=== PATIENT | male | born 1975 | race Caucasian/White ===

== ENCOUNTER 2024-04-29 12:14 | Emergency (ER) | payer BC ==
[~2024-04-29] VITALS: Ht 182.9 cm; Wt 113.9 kg
[2024-04-29 12:59] LABS: BASOPHILS 0.7 % (0-2); HEMATOCRIT 47.2 % (35.0-50.0); HEMOGLOBIN 16.5 g/dL (12.0-18.0); LYMPHOCYTES 22.8 % (24-44); MCV 91.3 fl (81-99); MONOCYTES 4.5 % (0-12); PLATELET COUNT 180 K/uL (140-440); RBC 5.16 M/ul (4.3-5.7)
[2024-04-29 13:19] LABS: ALBUMIN 3.8 g/dL (3.4-5.0); ALBUMIN/GLOBULIN RATIO 1.12 (1.1-2.4); ALKALINE PHOSPHATASE 40 U/L (46-116); ALT (SGPT) 47 U/L (14-59); ANION GAP 10.8 (7-21); AST (SGOT) 23 U/L (15-37); BILIRUBIN, TOTAL 0.8 ng/dL (0.2-1.0); BUN/CREATININE RATIO 7.04 (6.0-28.6); CALCIUM 8.9 mg/dL (8.5-10.1); CARBON DIOXIDE 28 mmol/L (21-32); CHLORIDE 103 mmol/L (98-107); CREATININE, SERUM 1.42 mg/dL (0.70-1.30); GLOMERULAR FILTRATION RATE,EST 61 mL/min (>60); MAGNESIUM 2.2 mg/dL (1.8-2.4); POTASSIUM 3.8 mmol/L (3.5-5.1); PROTEIN, TOTAL 7.2 g/dL (6.4-8.2); UREA NITROGEN 10 mg/dL (7-18)
[2024-04-29 14:05] VITALS: BP 130/93
--- NOTE | 2024-04-29 19:34 | EKG ---
[facility] [address] [facility] [address] [place], [place] [address] Signed Normal sinus rhythm with sinus arrhythmia Nonspecific T wave abnormality Abnormal ECG No previous ECGs available Confirmed by Ben Bennett MD ([id number]) on 04/29/2024 7:34:00 PM Electronically Signed By: BEN BENNETT MD 04/29/241933 PATIENT NAME: JOHN KLEIN WYATT Electrocardiogram DATE OF : 75 PHYSICIAN: BEN BENNETT MD REPORT #: [id number] REPORT IS CONFIDENTIAL AND NOT TO BE RELEASED WITHOUT AUTHORIZATION
== END 2024-04-29 14:02 | disposition home or self-care (01) ==
LOC: ED 12:14
PROVIDERS: Emergency Medicine
DX: R00.2 Palpitations (principal); Z88.0 Allergy status to penicillin
CPT/HCPCS: 36415; 80053; 83735; 84484; 85025; 99285